=== PATIENT | male | born 1965 | race Caucasian/White ===

== ENCOUNTER 2018-02-18 09:39 | Observation (INO) ==
[2018-02-18] MEDS ORDERED: ENOXAPARIN 100 MG/ML SYRINGE SUBCUT STA (10:15)
[2018-02-18] MEDS ORDERED: NITROGLYCERIN SL 0.4 MG TABLET SL PRN ×2 (10:15→16:12)
[2018-02-18] MEDS ORDERED: METOPROLOL TARTRATE 5 MG/5 ML VIAL IV STA (10:15)
[2018-02-18] MEDS ORDERED: ASPIRIN 325 MG TABLET PO STA (10:15)
[2018-02-18] MEDS ORDERED: NITROGLYCERIN 2% OINT 1 INCH/GM PACK TOP STA (10:15)
[2018-02-18] MEDS ORDERED: HYDROmorphone 2 MG/1 ML VIAL IV STA (12:18)
[2018-02-18] MEDS ORDERED: ONDANSETRON 4 MG/2 ML VIAL IV STA (12:18)
[2018-02-18 12:34] LABS: Basophils % 0.1 % (0.0-0.8); Eosinophils # 0.4 10*3/uL (0.0-0.87); Eosinophils % 5.5 % (0.00-10.9); Hematocrit 35.4 VOL% (42.0-52.0); Hemoglobin 11.5 GM/DL (14.0-18.0); Immature Granulocytes % 0.4 %; Immature Granulocytes Absolute 0.03 #; Lymphocytes # 0.9 10*3/uL (1.4-4.0); Lymphocytes % 13.1 % (21.2-54.2); Mean Corpuscular HGB Conc 32.5 GM/DL (32-36); Mean Corpuscular Hemoglobin 29 PG (27-34); Mean Corpuscular Volume 89.8 FL (87-102); Mean Platelet Volume 10.3 FL (9.6-12.0); Monocytes # 0.4 10*3/uL (0.11-0.8); Monocytes % 6.3 % (1.7-12.7); Neutrophils # 5.1 10*3/uL (1.4-7.4); Neutrophils % 74.6 % (38.7-73.9); Platelet Count 176 T/CUMM (130-400); Red Blood Count 3.94 MC/CUMM (3.8-5.5); Red Cell Distribution Width 14.6 % (9.3-17.3); White Blood Count 6.9 T/CUMM (4-12)
[2018-02-18] MEDS ORDERED: diphenhydrAMINE 50 MG/1 ML VIAL IV STA (12:44)
[2018-02-18 13:42] LABS: Osmolality,Calculated 279.5 MOS/KG (273-304); Potassium 4.2 MMOL/L (3.5-5.1)
[2018-02-18] MEDS ORDERED: MAGNESIUM SULF RIDER 2 GM in PREMIX 1 EACH IV PRN (14:37)
[2018-02-18] MEDS ORDERED: POTASSIUM CHLORIDE RIDER 10 MEQ in PREMIX 1 EACH IV PRN (14:37)
[2018-02-18] MEDS ORDERED: HEPARIN/NACL 0.9% 2 UNITS/ML 1,000 ML IV ONE (14:51)
[2018-02-18] MEDS ORDERED: LIDOCAINE 1% 20 ML VIAL ONE (14:52)
[2018-02-18] MEDS ORDERED: HYDROmorphone 2 MG/1 ML VIAL ONE (15:10)
[2018-02-18] MEDS ORDERED: MIDAZOLAM 2 MG/2 ML VIAL ONE ×2 (15:10→15:24)
[2018-02-18] MEDS ORDERED: fentaNYL 100 MCG/2 ML VIAL ONE (15:15)
[2018-02-18] MEDS ORDERED: ONDANSETRON 4 MG/2 ML VIAL IV PRN (16:09)
[2018-02-18] MEDS ORDERED: ACETAMINOPHEN 325 MG TABLET PO PRN (16:09)
[2018-02-18] MEDS ORDERED: ZALEPLON 5 MG CAPSULE PO PRN (16:09)
[2018-02-18] MEDS ORDERED: CLORAZEPATE 7.5 MG TABLET PO PRN (16:15)
[2018-02-18] MEDS ORDERED: METOPROLOL SUCCINATE XL 50 MG TABLET PO SCH (16:30)
[2018-02-18] MEDS ORDERED: ISOSORBIDE MONONITRATE 60 MG TABLET PO SCH (16:30)
[2018-02-18] MEDS: oxyCODONE ER 40 MG TABLET PO SCH (16:56)
[2018-02-18] MEDS: SODIUM CHLORIDE 0.9% 1,000 ML IV SCH (16:57)
[2018-02-18] MEDS ORDERED: RANOLAZINE 500 MG TABLET PO SCH (21:00)
[2018-02-18] MEDS ORDERED: ROSUVASTATIN 20 MG TABLET PO SCH (21:00)
[2018-02-19] MEDS: oxyCODONE ER 40 MG TABLET PO SCH ×2 (01:31→05:20)
[2018-02-19] MEDS: SODIUM CHLORIDE 0.9% 1,000 ML IV SCH (01:32)
[2018-02-19 06:08] LABS: Blood Urea Nitrogen 15 MG/DL (7-18); Calcium 8.1 MG/DL (8.5-10.1); Glucose 110 MG/DL (74-106); Osmolality,Calculated 284.1 MOS/KG (273-304); Potassium 4.1 MMOL/L (3.5-5.1); Sodium 142 MMOL/L (136-145); Troponin I Only < 0.015 NG/ML (0.00-0.045)
[2018-02-19 08:20] VITALS: BP 89/50
[2018-02-19] MEDS ORDERED: CLOPIDOGREL 75 MG TABLET PO SCH (09:00)
[2018-02-19] MEDS ORDERED: ASPIRIN EC 325 MG TABLET PO SCH (09:00)
== END 2018-02-19 10:13 | disposition home or self-care (01) ==
LOC: N.EDINP 09:39 → N.ED 09:39 → N.TELEN 15:00
PROVIDERS: ADMIT Internal Medicine Cardiovascular Disease; ATTEND Internal Medicine Cardiovascular Disease